=== PATIENT | male | born 1955 | race Hispanic/Latino ===

== ENCOUNTER 2022-01-18 20:55 | Inpatient (IN) | payer OTHER ==
[~2022-01-18] VITALS: Ht 162.6 cm; Wt 91.4 kg
[2022-01-18 21:21] LABS: BASOPHILS % (AUTO) 0.2 % (0.0-5.0); EOSINOPHILS % (AUTO) 0.3 % (0.0-8.0); HEMATOCRIT 42.6 % (42-54); LYMPHOCYTES % (AUTO) 4.1 % (21.0-51.0); MEAN CORPUSCULAR HEMOGLOBIN 29.5 pg (27.0-33.0); MEAN CORPUSCULAR HGB CONC 35.4 g/dL (32.0-36.0); MEAN CORPUSCULAR VOLUME 83.4 fL (79-99); MONOCYTES % (AUTO) 6.8 % (3.0-13.0); NEUTROPHILS % (AUTO) 87.9 % (40.0-77.0); PLATELET COUNT (AUTO) 217 K/uL (130-400); RED BLOOD CELL COUNT(AUTO) 5.11 MIL/uL (4.50-6.20); RED CELL DISTRIBUTION WIDTH 12.2 % (11.0-15.5); WHITE BLOOD COUNT (AUTO) 11.4 K/uL (4.8-10.8)
[2022-01-18 21:42] LABS: ALBUMIN 3.5 g/dL (3.5-5.0); CREATININE 2.3 mg/dL (0.5-1.5); TOTAL PROTEIN, SERUM 8.1 g/dL (6.0-8.3)
[2022-01-18 21:48] LABS: POTASSIUM 2.6 mmol/L (3.5-5.1)
[2022-01-18] MEDS ORDERED: 0.9%NACL 1000ML 1,000 ML IV SCH (22:00)
[2022-01-18] MEDS: POTASSIUM CHLORIDE 10MEQ/100ML 10 MEQ/100 ML ML IV SCH (22:00)
[2022-01-18] MEDS ORDERED: POTASSIUM CHLORIDE 20 MEQ/100 ML BAG IV SCH (22:00)
[2022-01-18] MEDS ORDERED: LIDOCAINE HCL-MPF 1% 2ML VIAL IV PRN (23:00)
[2022-01-18] MEDS ORDERED: POTASSIUM CHLORIDE 10% ELIXIR 20 MEQ/15 ML UDCUP PO PRN (23:00)
[2022-01-18] MEDS ORDERED: ONDANSETRON 4MG INJ IVP PRN (23:00)
[2022-01-18] MEDS ORDERED: INSULIN HUMULIN R 100 UNIT/ML 3ML SQ PRN (23:00)
[2022-01-18] MEDS: 0.9%NACL 1000ML 1,000 ML IV SCH (23:18)
[2022-01-18] MEDS: ZOSYN 3.375GM +NS 50ML IV SCH (23:24)
[2022-01-19] VITALS (7 sets, daily range): BP systolic 81–120; BP diastolic 52–70
[2022-01-19] MEDS: ACETAMINOPHEN 325 MG TAB PO PRN ×4 (01:01→23:39)
[2022-01-19] MEDS: POTASSIUM CHLORIDE 20MEQ/100ML 100 ML IV PRN (03:06)
[2022-01-19 05:19] LABS: BASOPHILS % (AUTO) 0.2 % (0.0-5.0); EOSINOPHILS % (AUTO) 0.1 % (0.0-8.0); HEMATOCRIT 35.7 % (42-54); LYMPHOCYTES % (AUTO) 3.7 % (21.0-51.0); MEAN CORPUSCULAR HGB CONC 34.7 g/dL (32.0-36.0); MEAN CORPUSCULAR VOLUME 86.2 fL (79-99); MONOCYTES % (AUTO) 6.3 % (3.0-13.0); PLATELET COUNT (AUTO) 161 K/uL (130-400); RED BLOOD CELL COUNT(AUTO) 4.14 MIL/uL (4.50-6.20); RED CELL DISTRIBUTION WIDTH 12.5 % (11.0-15.5); WHITE BLOOD COUNT (AUTO) 10.4 K/uL (4.8-10.8)
[2022-01-19 05:40] LABS: HEMOGLOBIN A1C 10.4 % (4.0-6.0)
[2022-01-19 05:58] LABS: CREATININE 2.6 mg/dL (0.5-1.5); MAGNESIUM 1.6 mg/dL (1.80-2.40); POTASSIUM 3.7 mmol/L (3.5-5.1)
[2022-01-19] MEDS: ZOSYN 3.375GM +NS 50ML IV SCH ×2 (06:49→14:52)
[2022-01-19] MEDS: KCL 20 MEQ ERTAB PO PRN ×2 (06:49→09:41)
[2022-01-19] MEDS: ENOXAPARIN SODIUM 30 MG/0.3 ML SQ SCH (09:42)
[2022-01-19] MEDS ORDERED: KCL 20 MEQ ERTAB PO PRN (12:00)
[2022-01-19] MEDS ORDERED: POTASSIUM CHLORIDE 20MEQ/100ML 100 ML IV PRN (12:00)
[2022-01-19] MEDS ORDERED: POTASSIUM CHLORIDE 10% ELIXIR 20 MEQ/15 ML UDCUP PO PRN (12:00)
[2022-01-19] MEDS ORDERED: LIDOCAINE HCL-MPF 1% 2ML VIAL IV PRN (12:00)
[2022-01-19] MEDS: MIDODRINE HCL 5 MG TABLET PO SCH ×2 (13:11→20:19)
[2022-01-19] MEDS: 0.9%NACL 1000ML 1,000 ML IV SCH ×2 (14:52→20:20)
[2022-01-19] MEDS: INSULIN HUMULIN R 100 UNIT/ML 3ML SQ SCH ×2 (16:36→20:17)
[2022-01-19 19:37] LABS: APPEARANCE,URINE CLOUDY (CLEAR); BILIRUBIN,URINE NEGATIVE (NEGATIVE); COLOR,URINE YELLOW (YELLOW); GLUCOSE, URINE (UA) >=1000 mg/dL (NEGATIVE); KETONES,URINE NEGATIVE (NEGATIVE); LEUKOCYTE ESTERASE ,URINE 500 Leu/uL (NEGATIVE); NITRATE,URINE NEGATIVE (NEGATIVE); OCCULT BLOOD,URINE MODERATE (NEGATIVE); PH,URINE 5.5 (5.0-8.0); PROTEIN,URINE 70 mg/dL (NEGATIVE); UROBILINOGEN,URINE 0.2 mg/dL (0.2-1.0)
[2022-01-19 19:40] LABS: BACTERIA,URINE RARE /HPF (None Seen); MUCUS,URINE FEW LPF (None Seen); OTHER CASTS, URINE 1 /LPF (None Seen); SQUAMOUS EPITHELIAL CELL,UR FEW /HPF (0-2); WBC,URINE 51-100 /HPF (0-1)
[2022-01-19] MEDS: POTASSIUM CHLORIDE 10MEQ/100ML 10 MEQ/100 ML ML IV SCH (20:11)
[2022-01-19] MEDS: MEROPENEM 1 GM VIAL IVP SCH (20:19)
[2022-01-20] VITALS (7 sets, daily range): BP systolic 82–136; BP diastolic 55–79
[2022-01-20] MEDS: 0.9%NACL 1000ML 1,000 ML IV SCH ×2 (05:02→17:11)
[2022-01-20] MEDS: MIDODRINE HCL 5 MG TABLET PO SCH ×3 (05:02→22:00)
[2022-01-20 05:17] LABS: HEMATOCRIT 38.6 % (42-54); MEAN CORPUSCULAR HEMOGLOBIN 29.8 pg (27.0-33.0); MEAN CORPUSCULAR HGB CONC 34.5 g/dL (32.0-36.0); MEAN CORPUSCULAR VOLUME 86.4 fL (79-99); RED BLOOD CELL COUNT(AUTO) 4.47 MIL/uL (4.50-6.20); RED CELL DISTRIBUTION WIDTH 12.5 % (11.0-15.5); WHITE BLOOD COUNT (AUTO) 17.4 K/uL (4.8-10.8)
[2022-01-20 05:36] LABS: ALBUMIN 2.4 g/dL (3.5-5.0); CREATININE 2.8 mg/dL (0.5-1.5); MAGNESIUM 1.6 mg/dL (1.80-2.40); PHOSPHORUS 3.8 mg/dL (2.5-4.9); POTASSIUM 4.5 mmol/L (3.5-5.1); TOTAL PROTEIN, SERUM 6.8 g/dL (6.0-8.3)
[2022-01-20] MEDS: INSULIN HUMULIN R 100 UNIT/ML 3ML SQ SCH ×4 (06:35→20:33)
[2022-01-20] MEDS: MEROPENEM 1 GM VIAL IVP SCH ×2 (09:26→22:00)
[2022-01-20] MEDS: ENOXAPARIN SODIUM 30 MG/0.3 ML SQ SCH (09:27)
[2022-01-20] MEDS: ACETAMINOPHEN 325 MG TAB PO PRN (17:34)
[2022-01-20] MEDS: POTASSIUM CHLORIDE 10MEQ/100ML 10 MEQ/100 ML ML IV SCH (21:56)
[2022-01-21] VITALS (7 sets, daily range): BP systolic 109–137; BP diastolic 55–82
[2022-01-21] MEDS: ACETAMINOPHEN 325 MG TAB PO PRN ×4 (00:08→18:46)
[2022-01-21] MEDS: 0.9%NACL 1000ML 1,000 ML IV SCH ×3 (02:33→22:20)
[2022-01-21 05:23] LABS: HEMATOCRIT 33.6 % (42-54); MEAN CORPUSCULAR HEMOGLOBIN 29.8 pg (27.0-33.0); MEAN CORPUSCULAR HGB CONC 34.8 g/dL (32.0-36.0); MEAN CORPUSCULAR VOLUME 85.7 fL (79-99); RED BLOOD CELL COUNT(AUTO) 3.92 MIL/uL (4.50-6.20); RED CELL DISTRIBUTION WIDTH 12.6 % (11.0-15.5); WHITE BLOOD COUNT (AUTO) 8.7 K/uL (4.8-10.8)
[2022-01-21] MEDS: MIDODRINE HCL 5 MG TABLET PO SCH ×3 (05:35→22:02)
[2022-01-21 05:40] LABS: MAGNESIUM 1.5 mg/dL (1.80-2.40)
[2022-01-21 05:43] LABS: POTASSIUM 2.9 mmol/L (3.5-5.1)
[2022-01-21] MEDS: POTASSIUM CHLORIDE 20MEQ/100ML 100 ML IV PRN (05:54)
[2022-01-21] MEDS: INSULIN HUMULIN R 100 UNIT/ML 3ML SQ SCH ×4 (06:28→22:04)
[2022-01-21] MEDS: MEROPENEM 1 GM VIAL IVP SCH ×2 (09:48→22:02)
[2022-01-21] MEDS: ENOXAPARIN SODIUM 30 MG/0.3 ML SQ SCH (09:49)
[2022-01-21] MEDS ORDERED: CHLORPROMAZINE HCL 25 MG/ML 1ML AMP IV SCH (14:30)
[2022-01-22 03:45] VITALS: BP 122/64
[2022-01-22] MEDS: MIDODRINE HCL 5 MG TABLET PO SCH ×3 (06:00→21:41)
[2022-01-22 07:15] VITALS: BP 127/72
[2022-01-22] MEDS ORDERED: KCL 20 MEQ ERTAB PO ONE (07:20)
[2022-01-22] MEDS ORDERED: POTASSIUM CHLORIDE 20MEQ/100ML 100 ML IV PRN (07:30)
[2022-01-22] MEDS ORDERED: MAGNESIUM 2GM PREMIX 50ML 50 ML IV PRN (07:30)
[2022-01-22] MEDS ORDERED: LIDOCAINE HCL-MPF 1% 2ML VIAL IV PRN (07:30)
[2022-01-22] MEDS: INSULIN HUMULIN R 100 UNIT/ML 3ML SQ SCH ×4 (07:30→21:00)
[2022-01-22] MEDS ORDERED: POTASSIUM CHLORIDE 10% ELIXIR 20 MEQ/15 ML UDCUP PO PRN (07:30)
[2022-01-22] MEDS: 0.9%NACL 1000ML 1,000 ML IV SCH ×2 (08:20→18:04)
[2022-01-22] MEDS: MEROPENEM 1 GM VIAL IVP SCH ×2 (09:00→21:41)
[2022-01-22] MEDS: ENOXAPARIN SODIUM 30 MG/0.3 ML SQ SCH (09:03)
[2022-01-22] MEDS: KCL 20 MEQ ERTAB PO PRN ×2 (10:25→12:33)
[2022-01-22 11:15] VITALS: BP 123/76
[2022-01-22 15:15] VITALS: BP 125/83
[2022-01-22 16:11] LABS: INR 0.95 (0.85-1.15); PROTHROMBIN TIME 10.4 SEC (9.6-11.6)
[2022-01-22 16:12] LABS: PARTIAL THROMBOPLASTIN TIME 30.8 SEC (26.3-35.5)
[2022-01-22] MEDS: ACETAMINOPHEN 325 MG TAB PO PRN (19:02)
[2022-01-22 20:10] VITALS: BP 100/65
[2022-01-22 23:48] VITALS: BP 121/60
[2022-01-23 04:00] VITALS: BP 124/82
[2022-01-23 05:47] LABS: HEMATOCRIT 35.1 % (42-54); MEAN CORPUSCULAR HEMOGLOBIN 29.3 pg (27.0-33.0); MEAN CORPUSCULAR HGB CONC 34.8 g/dL (32.0-36.0); MEAN CORPUSCULAR VOLUME 84.2 fL (79-99); RED BLOOD CELL COUNT(AUTO) 4.17 MIL/uL (4.50-6.20); RED CELL DISTRIBUTION WIDTH 12.7 % (11.0-15.5); WHITE BLOOD COUNT (AUTO) 5.7 K/uL (4.8-10.8)
[2022-01-23 05:55] LABS: CREATININE 1.3 mg/dL (0.5-1.5); POTASSIUM 3.5 mmol/L (3.5-5.1)
[2022-01-23] MEDS: MIDODRINE HCL 5 MG TABLET PO SCH (06:12)
[2022-01-23] MEDS: INSULIN HUMULIN R 100 UNIT/ML 3ML SQ SCH ×2 (06:13→13:08)
[2022-01-23] MEDS: MEROPENEM 1 GM VIAL IVP SCH (10:22)
[2022-01-23] MEDS: ENOXAPARIN SODIUM 30 MG/0.3 ML SQ SCH (10:23)
[2022-01-23] MEDS: ACETAMINOPHEN 325 MG TAB PO PRN (11:44)
[2022-01-23 11:54] VITALS: BP 129/67
== END 2022-01-23 17:15 | disposition home or self-care (01) | DRG 871 ==
LOC: EDH 20:55 → EDHIP 22:35 → 3CH 01-19 00:22
PROVIDERS: ADMIT Internal Medicine Infectious Disease; ATTEND Internal Medicine Infectious Disease
DX: A41.50 Gram-negative sepsis, unspecified (principal); K85.90 Acute pancreatitis without necrosis or infection, unspecified; N17.0 Acute kidney failure with tubular necrosis; E87.1 Hypo-osmolality and hyponatremia; N12 Tubulo-interstitial nephritis, not specified as acute or chronic; Z20.822 Contact with and (suspected) exposure to COVID-19; E87.6 Hypokalemia; E11.9 Type 2 diabetes mellitus without complications; E66.01 Morbid (severe) obesity due to excess calories; E78.5 Hyperlipidemia, unspecified; I10 Essential (primary) hypertension; Z83.3 Family history of diabetes mellitus; Z68.34 Body mass index [BMI] 34.0-34.9, adult; B96.20 Unspecified Escherichia coli [E. coli] as the cause of diseases classified elsewhere
CPT/HCPCS: 36415; 71045; 74176; 76705; 80048; 80053; 81001; 82270; 82948; 83036; 83605; 83690; 83735; 84100; 84132; 84484; 85025; 85027; 85610; 85730; 87040; 87077; 87088; 87186; 87635; 87804; 93005; C1894; G0378; J1650; J1815; J2185; J2543; J3230; J3475; J3480; J7030